=== PATIENT | male | born 1995 | race Caucasian/White ===

== ENCOUNTER → 2022-03-10 | Outpatient (CLI) | payer OTHER | LOC: M PLAIMG 06:58 → MERGE 07:00 | PROVIDERS: ATTEND Physician Assistant | DX: M48.061 Spinal stenosis, lumbar region without neurogenic claudication (principal) ==

== ENCOUNTER → 2024-05-23 | Outpatient (CLI) | payer OTHER ==
[2024-05-23 16:03] LABS: BASO # 0.1 10^3/uL (0.0-0.2); BASO % 0.6 % (0.0-1.0); EOS # 0.3 10^3/uL (0.0-0.5); EOS % 3.7 % (0.0-3.0); HEMATOCRIT 46.8 % (42.0-52.0); HEMOGLOBIN 15.5 g/dl (13.5-17.5); LYMPH # 2.4 10^3/uL (1.5-5.0); LYMPH % 28.9 % (24.0-44.0); MEAN CORPUSCULAR HEMOGLOBIN 29.6 pg (27.0-33.0); MEAN CORPUSCULAR HGB CONC 33.1 g/dl (32.0-36.5); MEAN CORPUSCULAR VOLUME 89.5 fl (80.0-96.0); MONO # 0.7 10^3/uL (0.0-0.8); MONO % 8.2 % (2.0-8.0); NEUTROPHILS # 4.9 10^3/uL (1.5-8.5); NEUTROPHILS % 58.4 % (36.0-66.0); PLATELET COUNT, AUTOMATED 276 10^3/uL (150-450); RED BLOOD COUNT 5.23 10^6/uL (4.30-6.10); WHITE BLOOD COUNT 8.3 10^3/uL (4.0-10.0)
[2024-05-23 16:23] LABS: HEMOGLOBIN A1c 4.9 % (4.0-6.0)
[2024-05-23 16:29] LABS: PSA SCREENING 0.29 NG/ML (< 4.00)
[2024-05-23 16:31] LABS: LIPASE 30 U/L (12-53)
[2024-05-23 16:32] LABS: FREE T4 1.24 NG/DL (0.89-1.76)
[2024-05-23 16:33] LABS: ALBUMIN 4.1 G/DL (3.2-5.2); ALKALINE PHOSPHATASE 94 U/L (46-116); ALT/SGPT 41 U/L (7.0-40); AST/SGOT 15 U/L (<34); BLOOD UREA NITROGEN 16 MG/DL (9-23); CALCIUM LEVEL 9.6 MG/DL (8.5-10.1); CARBON DIOXIDE LEVEL 28 MMOL/L (20-31); CHLORIDE LEVEL 108 MMOL/L (98-107); CHOLESTEROL LEVEL 200 MG/DL (<200); CHOLESTEROL RISK RATIO 6.11 (<5); CREATININE FOR GFR 0.86 MG/DL (0.70-1.30); GLOMERULAR FILTRATION RATE > 60.0 (>60); GLUCOSE, FASTING 73 MG/DL (60-100); HDL CHOLESTEROL 32.7 MG/DL (>40); LDL CHOLESTEROL 150.5 MG/DL (<100); NON-HDL-C 167.3 MG/DL; POTASSIUM SERUM 4.1 MMOL/L (3.5-5.1); SODIUM LEVEL 142 MMOL/L (136-145); THYROID STIMULATING HORMONE 1.563 uIU/ML (0.55-4.78); TOTAL PROTEIN 7.4 G/DL (5.7-8.2); TRIGLYCERIDES LEVEL 84 MG/DL (<150)
== END ==
LOC: M PLALAB 13:01
PROVIDERS: ATTEND Physician Assistant
DX: R10.30 Lower abdominal pain, unspecified (principal)

== ENCOUNTER 2024-08-27 10:43 | Outpatient (RCR) | payer OTHER | END 2024-09-03 | LOC: M PT 10:43 | PROVIDERS: ATTEND Physician Assistant Medical | DX: M54.50 Low back pain, unspecified (principal) ==

== ENCOUNTER 2024-09-20 08:57 | Outpatient (RCR) | payer OTHER | END 2024-10-04 | LOC: M PT 08:57 | PROVIDERS: ATTEND Physician Assistant Medical | DX: M54.50 Low back pain, unspecified (principal) ==

== ENCOUNTER → 2024-11-19 | Outpatient (CLI) | payer OTHER ==
[2024-11-19 14:46] LABS: BASO % 0.5 % (0.0-1.0); EOS # 0.2 10^3/uL (0.0-0.5); EOS % 2.6 % (0.0-3.0); LYMPH # 2.1 10^3/uL (1.5-5.0); LYMPH % 28.5 % (24.0-44.0); MEAN CORPUSCULAR HGB CONC 33.3 g/dl (32.0-36.5); MEAN CORPUSCULAR VOLUME 87.1 fl (80.0-96.0); MONO # 0.6 10^3/uL (0.0-0.8); NEUTROPHILS # 4.4 10^3/uL (1.5-8.5); PLATELET COUNT, AUTOMATED 261 10^3/uL (150-450); RED BLOOD COUNT 5.51 10^6/uL (4.30-6.10); WHITE BLOOD COUNT 7.4 10^3/uL (4.0-10.0)
[2024-11-19 15:21] LABS: ALKALINE PHOSPHATASE 81 U/L (40-129); ALT/SGPT 35 U/L (7.0-40); AST/SGOT 15 U/L (<34); BILIRUBIN,TOTAL 0.7 MG/DL (0.3-1.2); BLOOD UREA NITROGEN 10 MG/DL (9-23); CALCIUM LEVEL 9.1 MG/DL (8.5-10.1); CARBON DIOXIDE LEVEL 24 MMOL/L (20-31); CHLORIDE LEVEL 106 MMOL/L (98-107); CHOLESTEROL LEVEL 189 MG/DL (<200); CHOLESTEROL RISK RATIO 4.89 (<5); CREATININE FOR GFR 0.83 MG/DL (0.70-1.30); GLOMERULAR FILTRATION RATE > 60.0 (>60); GLUCOSE, FASTING 92 MG/DL (60-100); HDL CHOLESTEROL 38.6 MG/DL (>40); NON-HDL-C 150.4 MG/DL; POTASSIUM SERUM 4.2 MMOL/L (3.5-5.1); SODIUM LEVEL 143 MMOL/L (136-145); TOTAL PROTEIN 7.3 G/DL (5.7-8.2); TRIGLYCERIDES LEVEL 102 MG/DL (<150)
[2024-11-20 18:07] LABS: ALMOND IGE FOOD < 0.10 kU/L (<0.10); BERMUDA GRASS IGE < 0.10 kU/L (<0.10); BIRCH IGE < 0.10 kU/L (<0.10); BRAZIL NUT CLASS IGE <0.10 ABSENT (<0.10); BRAZIL NUT IGE < 0.10 kU/L (<0.10); CASHEW NUT IGE FOOD < 0.10 kU/L (<0.10); CODFISH IGE FOOD < 0.10 kU/L (<0.10); COMMON RAGWEED SHORT IGE < 0.10 kU/L (<0.10); COWS MILK FOOD < 0.10 kU/L (<0.10); D001 IGE D PTERONYSSINUS < 0.10 kU/L (<0.10); D002-IGE D FARINAE < 0.10 kU/L (<0.10); E001-IGE CAT DANDER < 0.10 kU/L (<0.10); E005-IGE DOG DANDER < 0.10 kU/L (<0.10); EGG WHITE FOOD < 0.1 kU/L (<0.10); ELM IGE < 0.10 kU/L (<0.10); HAZELNUT IGE FOOD < 0.10 kU/L (<0.10); I006 IGE COCKROACH < 0.10 kU/L (<0.10); IMMUNOGLOBULIN E FOR ALLERGENS 12 kU/L (<OR=114); M002 IGE CLADOSPORIUM HERBARU < 0.10 kU/L (<0.10); M003 IGE ASPERGILLUS FUMIGATU < 0.10 kU/L (<0.10); M006 IGE ALTERNIA ALTERNATA < 0.10 kU/L (<0.10); M1-PENICILLIUM NOTATUM < 0.10 kU/L (<0.10); MACADAMIA NUT < 0.10 kU/L (<0.10); MACADAMIA NUT CLASS IGE <0.10 ABSENT (<0.10); MOUSE URINE IGE < 0.10 kU/L (<0.10); MUGWORT IGE < 0.10 kU/L (<0.10); OAK IGE < 0.10 kU/L (<0.10); PEANUT IGE FOOD < 0.10 kU/L (<0.10); ROUGH PIGWEED IGE < 0.10 kU/L (<0.10); SALMON IGE FOOD < 0.10 kU/L (<0.10); SCALLOP IGE FOOD < 0.10 kU/L (<0.10); SESAME SEED IGE FOOD < 0.10 kU/L (<0.10); SHEEP SORREL IGE < 0.10 kU/L (<0.10); SHRIMP IGE FOOD < 0.10 kU/L (<0.10); SOYBEAN IGE FOOD < 0.10 kU/L (<0.10); SYCAMORE IGE < 0.10 kU/L (<0.10); T001-IGE MAPLE BOX ELDER < 0.10 kU/L (<0.10); T006-IGE MOUNTAIN CEDAR < 0.10 kU/L (<0.10); T014 COTTONWOOD IGE < 0.10 kU/L (<0.10); TIMOTHY GRASS IGE < 0.10 kU/L (<0.10); TUNA IGE FOOD < 0.10 kU/L (<0.10); WALNUT IGE FOOD < 0.10 kU/L (<0.10); WALNUT TREE IGE < 0.10 kU/L (<0.10); WHEAT IGE FOOD < 0.10 kU/L (<0.10); WHITE ASH IGE < 0.10 kU/L (<0.10); WHITE MULBERRY IGE < 0.10 kU/L (<0.10)
== END ==
LOC: M PLALAB 09:02
PROVIDERS: ATTEND Nurse Practitioner Family
DX: K59.00 Constipation, unspecified (principal); R93.5 Abnormal findings on diagnostic imaging of other abdominal regions, including retroperitoneum

== ENCOUNTER → 2024-11-24 | Outpatient (CLI) | payer OTHER | LOC: M LAB 12:46 | PROVIDERS: ATTEND Nurse Practitioner Family | DX: R35.0 Frequency of micturition (principal) ==

== ENCOUNTER → 2024-11-24 | Outpatient (CLI) | payer OTHER | LOC: M LAB 12:48 | PROVIDERS: ATTEND Nurse Practitioner Family | DX: K59.00 Constipation, unspecified (principal) ==

== ENCOUNTER → 2024-12-10 | Outpatient (CLI) | payer OTHER | LOC: M RAD 13:39 | PROVIDERS: ATTEND Nurse Practitioner Family | DX: R93.5 Abnormal findings on diagnostic imaging of other abdominal regions, including retroperitoneum (principal) ==

== ENCOUNTER → 2025-06-19 | Outpatient (CLI) | payer OTHER | LOC: M PLARAD 14:54 | PROVIDERS: ATTEND Nurse Practitioner Family | DX: M54.16 Radiculopathy, lumbar region (principal) ==

== ENCOUNTER → 2025-09-02 | Outpatient (REF) | payer OTHER | LOC: M SFHCPLAZ 09:07 | PROVIDERS: ATTEND Family Medicine | DX: Z53.9 Procedure and treatment not carried out, unspecified reason (principal) ==

== ENCOUNTER → 2025-09-02 | Outpatient (CLI) | payer OTHER ==
[2025-09-02 13:24] LABS: ALT/SGPT 23 U/L (7.0-40); AST/SGOT 15 U/L (<34); CALCIUM LEVEL 9.2 MG/DL (8.5-10.1); CARBON DIOXIDE LEVEL 30 MMOL/L (20-31); CHLORIDE LEVEL 103 MMOL/L (98-107); CHOLESTEROL LEVEL 149 MG/DL (<200); CHOLESTEROL RISK RATIO 4.11 (<5); CREATININE FOR GFR 0.74 MG/DL (0.70-1.30); GLOMERULAR FILTRATION RATE > 90.0 (>60); LDL CHOLESTEROL 100.2 MG/DL (<100); NON-HDL-C 112.8 MG/DL; POTASSIUM SERUM 3.7 MMOL/L (3.5-5.1); SODIUM LEVEL 141 MMOL/L (136-145); TRIGLYCERIDES LEVEL 63 MG/DL (<150)
== END ==
LOC: M PLALAB 09:42
PROVIDERS: ATTEND Family Medicine
DX: K76.0 Fatty (change of) liver, not elsewhere classified (principal)